=== PATIENT | male | born 1960 | race African-American/Black ===

== ENCOUNTER 2018-05-28 11:59 | Inpatient (IN) | payer OTHER ==
[2018-05-28 12:20] VITALS: BMI 22.0
--- NOTE | 2018-05-28 14:48 | HP ---
CIWA Score - Admission Criteria [facility] Guidelines: Admission for Medically Managed Detox: Requires at least one of the followin. CIWA greater than 12 2. Seizures within the past 24 hours 3. Delirium tremens within the past 24 hours 4. Hallucinations within the past 24 hours 5. Acute intervention needed for co occurring medical disorder 6. Acute intervention needed for co occurring psychiatric disorder 7. Severe withdrawal that cannot be handled at a lower level of care (continued vomiting, continued diarrhea, abnormal vital signs) requiring intravenous medication and/or fluids 8. Admission ROS S - HPI Chief Complaint: i am here for rehab from marijuana Allergies/Adverse Reactions: Allergies Allergy/AdvReac Type Severity Reaction Status Date / Time penicillin G Allergy Severe Difficulty Verified 05/28/18 14:10 Breathing History of Present Illness: this 57 years old male with marijuana dependence,mandated by court ,booking officer to come in for rehab, history of bph bipolar disorder weight loss last treatment 2017 in [place] - Ebola screening Have you traveled outside of the country in the last 21 days: No Have you had contact with anyone from an Ebola affected area: No Have you been sick,other than usual withdrawal symptoms: No Do you have a fever: No - Review of Systems Constitutional: No Symptoms Reported EENT: reports: No Symptoms Reported Respiratory: reports: No Symptoms reported Cardiac: reports: No Symptoms Reported GI: reports: No Symptoms Reported : reports: No Symptoms Reported Musculoskeletal: reports: No Symptoms Reported Integumentary: reports: No Symptoms Reported Neuro: reports: No Symptoms reported Endocrine: reports: No Symptoms Reported Hematology: reports: No Symptoms Reported Psychiatric: reports: No Sypmtoms Reported, Judgement Intact, Orientated x3, Anxious, Depressed, Disorientated Patient History - Patient Medical History Hx Asthma: Yes (on albuterol inhaler) Hx Chronic Obstructive Pulmonary Disease (COPD): No Hx Cancer: No Hx Cardiac Disorders: No Hx Hypertension: No Hx Hypercholesterolemia: No Hx Pacemaker: No HX Cerebrovascular Accident: No Hx Seizures: No Hx Diabetes: No Hx Gastrointestinal Disorders: Yes (acid reflux) Hx Liver Disease: No Hx Genitourinary Disorders: No Hx Sexually Transmitted Disorders: No Hx Renal Disease (ESRD): No Hx Thyroid Disease: No Hx Human Immunodeficiency Virus (HIV): No (last 04/24 negative) Hx Hepatitis C: No Hx Depression: Yes (anxiety,insomnia) Hx Suicide Attempt: No Hx Bipolar Disorder: No Hx Schizophrenia: No Other Medical History: no suicidal,no homicidal,cervical spine fusion, arthroscopic surgery both kn - Patient Surgical History Past Surgical History: Yes Hx Neurologic Surgery: No Hx Cataract Extraction: No Hx Cardiac Surgery: No Hx Lung Surgery: No Hx Breast Surgery: No Hx Breast Biopsy: No Hx Abdominal Surgery: No Hx Appendectomy: No Hx Cholecystectomy: No Hx Genitourinary Surgery: No Hx Section: No Hx Orthopedic Surgery: Yes (torn cartilage, both knees in 1995/spinal fusion in 2005 cervical) Other Surgical History: right bicepm sx in 1992 - PPD History Previous Implant?: Yes Documented Results: Negative w/o proof Implanted On Prior R Admission?: No PPD to be Administered?: Yes - Smoking Cessation Smoking history: Never smoked Have you smoked in the past 12 months: No Hx Chewing Tobacco Use: No Initiated information on smoking cessation: No - Substance & Tx. History Hx Alcohol Use: No Hx Substance Use: Yes Substance Use Type: Marijuana Hx Substance Use Treatment: Yes (2017 in [place]) - Substances Abused Marijuana Route: Smoking Frequency: Daily Amount used: $80-90 Age of first use: 15 Date of Last Use: 05/27/18 Family Disease History - Family Disease History Family History: Denies Admission Physical Exam S - Vital Signs Vital Signs: Vital Signs - 24 hr 05/28/18 12:17 Temperature 97.4 F L Pulse Rate 56 L Respiratory 18 Rate Blood Pressure 130/81 - Physical General Appearance: Yes: Within Normal Limits HEENTM: Yes: Within Normal Limits, TUCKER, Pharynx Normal Respiratory: Yes: Within Normal Limits, Lungs Clear, Normal Breath Sounds Neck: Yes: Within Normal Limits, No masses,lesions,Nodules, Supple, Other (scar in posterior of neck s/p spinal fusion) Breast: Yes: Within Normal Limits Cardiology: Yes: Within Normal Limits, Regular Rhythm, Regular Rate, S1, S2 Abdominal: Yes: Within Normal Limits, Normal Bowel Sounds, Non Tender, Flat, Soft Genitourinary: Yes: Within Normal Limits, Other (history of bph) Back: Yes: Within Normal Limits Musculoskeletal: Yes: Within Normal Limits, Muscle Pain Extremities: Yes: Within Normal Limits, Normal Capillary Refill, Normal Range of Motion Neurological: Yes: assembler faucets II-XII NML intact, Fully Oriented, Alert, Motor Strength 5/5 Integumentary: Yes: Dry Lymphatic: Yes: Within Normal Limits - Diagnostic (1) Cannabis dependence Current Visit: Yes Status: Acute (2) BPH (benign prostatic hyperplasia) Current Visit: Yes Status: Acute (3) Insomnia secondary to depression with anxiety Current Visit: Yes Status: Acute (4) Weight loss Current Visit: Yes Status: Acute (5) History of neck surgery Current Visit: Yes Status: Acute (6) History of knee surgery Current Visit: Yes Status: Acute Cleared for Admission S - Detox or Rehab Claeared for Rehab Admission: Yes [facility] Breath Alcohol Content Breath Alcohol Content: 0 Urine Drug Screen - Results Drug Screen Negative: No Urine Drug Screen Results: THC-Marijuana Inpatient Rehab Admission - Initial Determination Are CD services needed?: Yes Free of communicable disease: Yes Not in need of hospitalization: Yes - Rehab Admission Criteria Previous failed treatment: Yes Poor recovery environment: Yes Comorbidities: Yes Lacks judgement: No Patient is meeting Inpatient Rehab admission criteria:: Yes
[2018-05-28] MEDS ORDERED: MAGNESIUM HYDROX 2400MG/30ML ORAL SUSPENSION 30 ML CUP PO PRN (15:00)
[2018-05-28] MEDS ORDERED: P-EPHED 60MG/TRIPROLIDI 2.5MG TABLET PO PRN (15:00)
[2018-05-28] MEDS ORDERED: IBUPROFEN 400 MG TABLET (FP) PO PRN (15:00)
[2018-05-28] MEDS ORDERED: MAG HYDROX/AL HYDROX/SIMETH 30 ML UNIT-DOSE CUP PO PRN (15:00)
[2018-05-28] MEDS ORDERED: ACETAMINOPHEN 325 MG TABLET (FP) PO PRN (15:00)
[2018-05-28] MEDS ORDERED: MAGNESIUM CITRATE 300 ML BOTTLE PO PRN (15:00)
[2018-05-28] MEDS ORDERED: LOPERAMIDE HCL 2 MG CAPSULE PO PRN (15:00)
[2018-05-28] MEDS ORDERED: MENTHOL/PHENOL 1 EACH UD MM PRN (15:00)
[2018-05-28] MEDS ORDERED: guaiFENesin/D-METHORPHAN HB 10 ML UNIT-DOSE CUPS PO PRN (15:00)
[2018-05-28] MEDS ORDERED: ALBUTEROL SO4 8 GM HFA INHALER IH PRN (15:03)
[2018-05-28] MEDS: PANTOPRAZOLE 40 MG TABLET (FP) PO SCH (19:37)
--- NOTE | 2018-05-28 21:26 | PN ---
[facility] Progress Note Note: Psychiatry Attending's on-call note (delayed) : Informed of patient's admission to [address] Asked by nurse to enter orders for zoloft + mirtazapine. [facility] report reviewed. Spoke to patient via telephone. Mr Corral confirmed his medications (doses + indications). However, patient indicated that he already took both medications. Prior to arrival to [facility]. " I am fine. I don't need them ordered tonight ". Patient added that he does not take these medications every day. " I have a 7 y/o daughter. I feel drugged up when I take them.That is why I take them every other day. I need to stay alert for the child's safety ". Conversation witnessed by referring nurse. Orders deferred. Unit psychiatrist will advise.
[2018-05-28] MEDS ORDERED: MELATONIN 5 MG TABLETS PO PRN (22:00)
[2018-05-28] MEDS: THIAMINE HCL 100 MG TABLET (FP) PO SCH (22:00)
[2018-05-29] MEDS ORDERED: TAMSULOSIN HCL 0.4 MG CAP PO SCH (10:00)
[2018-05-29] MEDS: PANTOPRAZOLE 40 MG TABLET (FP) PO SCH (10:04)
[2018-05-29] MEDS: TAMSULOSIN HCL 0.4 MG CAP PO SCH (10:04)
[2018-05-29] MEDS: PRENATAL VITAMINS W/ FOLIC ACID TABLET (FP) PO SCH (10:04)
[2018-05-29 10:21] LABS: HEMATOCRIT 41.3 % (35.4-49); MCH 27.7 pg (25.7-33.7); MCHC 31.5 g/dl (32.0-35.9); MEAN PLT VOLUME 8.6 fl (7.5-11.1); PLATELET COUNT 192 K/MM3 (134-434); RBC 4.69 M/mm3 (4.00-5.60); RDW 14.5 % (11.9-15.9); WHITE BLOOD COUNT 4.6 K/mm3 (4.0-10.0)
[2018-05-29 10:49] LABS: ALBUMIN 3.8 g/dl (3.4-5.0); ALK PHOS 75 U/L (45-117); ANION GAP 9 MMOL/L (8-16); BILIRUBIN,TOTAL 0.7 mg/dL (0.2-1); BLOOD UREA NITROGEN 11 mg/dL (7-18); CALCIUM 8.9 mg/dL (8.5-10.1); CHLORIDE 106 mmol/L (98-107); CO2 27 mmol/L (21-32); GLUCOSE,RANDOM 85 mg/dL (74-106); POTASSIUM 4.7 mmol/L (3.5-5.1); SGOT/AST 14 U/L (15-37); SGPT/ALT 23 U/L (13-61); SODIUM 143 mmol/L (136-145); TOT PROT 6.8 g/dl (6.4-8.2)
[2018-05-29 13:39] LABS: URINE APPEARANCE CLEAR; URINE BILIRUBIN NEGATIVE (<2.0 mg/dL); URINE COLOR COLORLESS; URINE GLUCOSE (UA) NEGATIVE (NEGATIVE); URINE KETONE NEGATIVE (NEGATIVE); URINE LEUK ESTERASE NEGATIVE (NEGATIVE); URINE NITRITE NEGATIVE (NEGATIVE); URINE PROTEIN NEGATIVE (NEGATIVE); URINE UROBILINOGEN NEGATIVE mg/dL (0.2-1.0)
[2018-05-29] MEDS: THIAMINE HCL 100 MG TABLET (FP) PO SCH (21:39)
--- NOTE | 2018-05-30 09:52 | EKG ---
Test Reason : Blood Pressure : / mmHG Vent. Rate : 051 BPM Atrial Rate : 051 BPM P-R Int : 144 ms QRS Dur : 096 ms QT Int : 428 ms P-R-T Axes : 070 072 046 degrees QTc Int : 394 ms SINUS BRADYCARDIA NONSPECIFIC ST ABNORMALITY ABNORMAL ECG NO PREVIOUS ECGS AVAILABLE BASELINE ARTIFACT POOR DATA QUALITY, INTERPRETATION MAY BE ADVERSELY AFFECTED Confirmed by RENETTA LAMAR MD ([id number]) on 05/30/2018 9:52:34 AM Referred By: Confirmed By:RENETTA LAMAR MD
--- NOTE | 2018-05-30 10:19 | HP ---
Psychiatrist Admission - Data Date of interview: 05/30/18 Admission source: [facility]. Court mandate. Identifying data: First admission to [facility] for this 57 y/o AA male, referred by chief communications officer for rehabilitation treatment to address marihuana dependence. Patient is , a father of two, domiciled, currently unemployed and supported on odd jobs. Medical History: Benign prostatic hyperplasia, arthritis of both knees( arthroscopic surgery for torn cartilages) and spinal fusions (hardware in situ), GERD and bronchial asthma. Psychiatric History: Patient admits to a distant history of one psychiatric hospitalization ([facility]) for behavioral disturbances. Mr Ellis comments that he " always had issues with concentration and keeping focus ". Did not follow with psychiatric aftercare until recent times. Patient was placed on sertraline and remeron by a psychiatrist, a year ago (at a nursing home). He endorses sub-optimal adherence to the drugs (prescribed by a primary care doctor), reporting that he takes them " only once in a while ". No reported history of suicide attempts. No recent contact with psychiatric [employer] care providers. Physical/Sexual Abuse/Trauma History: Patient reports a history of incarceration (17 consecutive years for armed robbery). On parole for life. Additional Comment: Profile of substance abuse : Smoking history: Never smoked. Have you smoked in the past 12 months: No. Hx Chewing Tobacco Use: No. Initiated information on smoking cessation: No. - Substance & Tx. History. Hx Alcohol Use: No. Hx Substance Use: Yes. Substance Use Type: Marijuana. Hx Substance Use Treatment: Yes (2017 in [place]). - Substances Abused. Marijuana. Route: Smoking. Frequency: Daily. Amount used: $80-90. Age of first use: 15. Date of Last Use: 05/27/18. Urine Drug Screen Results: THC- Marijuana. Noted. Vital Signs: Vital Signs - 24 hr 05/29/18 05/30/18 05/30/18 22:00 00:30 03:30 Temperature 97.9 F Pulse Rate 58 L Respiratory 18 16 16 Rate Blood Pressure 139/79 05/30/18 06:55 Temperature Pulse Rate 71 Respiratory 16 Rate Blood Pressure 113/70 Allergies/Adverse Reactions: Allergies Allergy/AdvReac Type Severity Reaction Status Date / Time penicillin G Allergy Severe Difficulty Verified 05/28/18 14:10 Breathing - Substance Abuse/Tx History Hx Alcohol Use: No Hx Substance Use: Yes Substance Use Type: Marijuana Hx Substance Use Treatment: Yes Mental Status Exam - Mental Status Exam Alert and Oriented to: Time, Place, Person Cognitive Function: Good Patient Appearance: Well Groomed Mood: Apprehensive, Hopeful Affect: Appropriate, Normal Range Patient Behavior: Appropriate, Cooperative Speech Pattern: Clear, Appropriate Voice Loudness: Normal Thought Process: Intact, Goal Oriented Thought Disorder: Not Present Hallucinations: Denies Suicidal Ideation: Denies Homicidal Ideation: Denies Insight/Judgement: Fair Sleep: Poorly, Difficulty falling asleep Appetite: Good Muscle strength/Tone: Normal Gait/Station: Normal Psychiatric Findings - Problem List ([place] 1, 2,3) (1) Cannabis dependence Current Visit: Yes Status: Acute (2) Substance induced mood disorder Current Visit: Yes Status: Acute (3) Insomnia Current Visit: Yes Status: Acute - Initial Treatment Plan Initial Treatment Plan: Psychoeducation. Sleep hygiene. Motivational rounds. Psychotherapy (group, supportive). Social work team will explore patient's specific needs (financial assistance, referral to psychiatrist, aftercare programs). Medications : remeron 15 mg po hs + zoloft 50 mg po daily. Side effects/benefits of both drugs are discussed with the patient. Made aware of risk of suicidal ideation, sexual dysfunction,sedation. Mr Corral has expressed his agreement with this plan of care. Observation.
[2018-05-30] MEDS: PRENATAL VITAMINS W/ FOLIC ACID TABLET (FP) PO SCH (10:39)
[2018-05-30] MEDS: TAMSULOSIN HCL 0.4 MG CAP PO SCH (10:39)
[2018-05-30] MEDS: PANTOPRAZOLE 40 MG TABLET (FP) PO SCH (10:39)
[2018-05-30] MEDS: THIAMINE HCL 100 MG TABLET (FP) PO SCH (21:29)
[2018-05-30] MEDS: hydrOXYzine PAMOATE 50 MG CAPSULE (FP) PO PRN (21:30)
[2018-05-30] MEDS: MIRTAZAPINE 15 MG TABLET (FP) PO SCH (22:36)
[2018-05-31] MEDS: SERTRALINE HCL 50 MG TABLET (FP) PO SCH (10:19)
[2018-05-31] MEDS: PRENATAL VITAMINS W/ FOLIC ACID TABLET (FP) PO SCH (10:19)
[2018-05-31] MEDS: TAMSULOSIN HCL 0.4 MG CAP PO SCH (10:19)
[2018-05-31] MEDS: PANTOPRAZOLE 40 MG TABLET (FP) PO SCH (10:19)
[2018-05-31] MEDS: THIAMINE HCL 100 MG TABLET (FP) PO SCH (22:10)
[2018-05-31] MEDS: hydrOXYzine PAMOATE 50 MG CAPSULE (FP) PO PRN (22:10)
[2018-05-31] MEDS: MIRTAZAPINE 15 MG TABLET (FP) PO SCH (22:10)
[2018-06-01] MEDS: PRENATAL VITAMINS W/ FOLIC ACID TABLET (FP) PO SCH (09:49)
[2018-06-01] MEDS: PANTOPRAZOLE 40 MG TABLET (FP) PO SCH (09:49)
[2018-06-01] MEDS: TAMSULOSIN HCL 0.4 MG CAP PO SCH (09:49)
[2018-06-01] MEDS: SERTRALINE HCL 50 MG TABLET (FP) PO SCH (09:49)
[2018-06-01] MEDS: hydrOXYzine PAMOATE 50 MG CAPSULE (FP) PO PRN (22:07)
[2018-06-01] MEDS: THIAMINE HCL 100 MG TABLET (FP) PO SCH (22:07)
[2018-06-01] MEDS: MIRTAZAPINE 15 MG TABLET (FP) PO SCH (22:08)
[2018-06-02 07:21] VITALS: BP 109/73; PULSE 63; TEMP 98.1
[2018-06-02] MEDS: PANTOPRAZOLE 40 MG TABLET (FP) PO SCH (09:47)
[2018-06-02] MEDS: PRENATAL VITAMINS W/ FOLIC ACID TABLET (FP) PO SCH (09:49)
[2018-06-02] MEDS: SERTRALINE HCL 50 MG TABLET (FP) PO SCH (09:50)
[2018-06-02] MEDS: TAMSULOSIN HCL 0.4 MG CAP PO SCH (11:15)
== END 2018-06-02 12:00 | disposition home or self-care (01) | DRG 772 ==
LOC: YASAS 11:59 → Y3W 15:49
PROVIDERS: ADMIT Psychiatry & Neurology Psychiatry; ATTEND Psychiatry & Neurology Psychiatry
PROC: HZ42ZZZ Group Counseling for Substance Abuse Treatment, Cognitive-Behavioral (ICD-10-PCS; principal; 2018-05-28)
DX: F12.20 Cannabis dependence, uncomplicated (principal); F19.24 Other psychoactive substance dependence with psychoactive substance-induced mood disorder; F51.05 Insomnia due to other mental disorder; N40.0 Benign prostatic hyperplasia without lower urinary tract symptoms; G47.00 Insomnia, unspecified; K21.9 Gastro-esophageal reflux disease without esophagitis; J45.909 Unspecified asthma, uncomplicated; M13.862 Other specified arthritis, left knee; M13.861 Other specified arthritis, right knee; Z98.1 Arthrodesis status; Z88.0 Allergy status to penicillin
CPT/HCPCS: 36415; 80053; 81003; 85027; 86593; 93005; 93010